=== PATIENT | male | born 1985 ===

== ENCOUNTER 2021-09-13 21:54 | Inpatient (IN) | payer OTHER ==
[2021-09-13] MEDS ORDERED: Lorazepam 2 MG/ML VIAL ONE ×2 (22:16→23:20)
[2021-09-13] MEDS ORDERED: Haloperidol Lactate 5 MG/ML VIAL ONE (22:29)
[2021-09-13] MEDS ORDERED: EPINEPHrine 1 MG/10 ML Abboject SYRINGE ONE (22:58)
[2021-09-13 23:12] LABS: #Eosinphils 0.1 thou/uL (0.0-0.7); #Lymphocytes 1.3 thou/uL (1.20-3.40); #Monocytes 0.7 thou/uL (0.11-0.59); #Neutrophils 2.8 thou/uL (1.40-6.50); %Basophils 0.6 % (0.0-1.0); %Eosinophils 1.5 % (0.0-10.0); %Lymphocytes 26.3 % (21.0-51.0); %Monocytes 13.9 % (0.0-10.0); %Neutrophils 57.7 % (42.0-75.0); Hemoglobin 10.4 g/dL (14.0-18.0); Mean Corpuscular HGB CONC 34.2 g/dL (32.0-36.0); Mean Corpuscular Volume 96.5 fL (78.0-98.0); Mean Platelet Volume 8.9 fL (7.4-10.4); Platelet Count 113 thou/uL (130-400); Red Blood Cell (RBC) Count 3.14 mill/uL (4.70-6.10); White Blood Cell (WBC) Count 4.9 thou/uL (4.8-10.8)
[2021-09-13 23:28] LABS: Large Platelets SLIGHT; MDiff Complete? YES; Platelet Morphology Comment Appears Decreased; RBC Morphology Normal
[2021-09-13 23:34] LABS: ALT (SGPT) 21 U/L (8-55); AST (SGOT) 30 U/L (5-34); Albumin 3.1 g/dL (3.5-5.0); Alkaline Phosphatase 67 U/L (40-110); Anion Gap 14 mmol/L (10-20); BUN (Urea Nitrogen) 51 mg/dL (8.9-20.6); Bilirubin, Total 1.5 mg/dL (0.2-1.2); Calc. Creatinine Clearance 0 mL/min (70-130); Calcium 6.8 mg/dL (7.8-10.44); Carbon Dioxide 16 mmol/L (22-29); Chloride 114 mmol/L (98-107); Globulin 2.6 g/dL (2.4-3.5); Glucose 61 mg/dL (70-105); Potassium 3.8 mmol/L (3.5-5.1); Protein, Total 5.7 g/dL (6.0-8.3); Sodium 140 mmol/L (136-145)
[2021-09-13 23:34] LABS: Acetaminophen Less than 6.0 mcg/mL (10.0-30.0); Alcohol Less than 10 mg/dL (Less than 10); Salicylate Less than 8.0 mg/dL (15.0-30.0)
[2021-09-14] MEDS ORDERED: Dextrose 50% Abboject 50 ML SYRINGE ONE (00:15)
[2021-09-14] MEDS ORDERED: Lorazepam 2 MG/ML VIAL ONE (00:29)
[2021-09-14] MEDS ORDERED: Rocuronium Bromide 10 MG/ML (10ML VIAL) ONE ×2 (00:45→00:50)
[2021-09-14] MEDS ORDERED: Ketamine 50 MG/ML (10ML VIAL) ONE (00:45)
[2021-09-14] MEDS ORDERED: Fentanyl CADD 100 ML IV SCH (01:30)
[2021-09-14 02:02] LABS: Bilirubin Negative (Negative); Blood, Urine 1+ (Negative); Clarity Clear (Clear); Glucose, Urine (Dipstick) 70 mg/dL (Negative); Ketone, Urine 20 mg/dL (Negative); Leukocyte Negative Leu/uL (Negative); Nitrite Negative (Negative); Protein, Urine (Dipstick) 10 mg/dL (Neg-Trace); RBC/HPF 0-3 HPF (0-3); Specific Gravity, Urine 1.012 (1.002-1.036); Squamous Epithelial None Seen HPF (0-3); Urobilinogen Normal mg/dL (Less than 2); WBC/HPF 0-3 HPF (0-3); pH, Urine 5.5 (5.0-9.0)
[2021-09-14 02:12] LABS: Amphetamine Not Detected (NotDetected); Barbiturates Screen Not Detected (NotDetected); Benzodiazepine Screen Detected (NotDetected); Cocaine Metabolite Screen Not Detected (NotDetected); Methadone Not Detected (NotDetected); Methamphetamine Detected (NotDetected); Opiate Screen Not Detected (NotDetected); Oxycodone Screen Not Detected (NotDetected); Phencyclidine (PCP) Not Detected (NotDetected); THC/Cannabinoid Screen Not Detected (NotDetected); Tricyclic Screen Not Detected (NotDetected)
[2021-09-14 02:19] LABS: Bacteria/HPF 1+ HPF (None Seen)
[2021-09-14] MEDS ORDERED: Propofol 1,000 MG/100 ML VIAL IV ONE (03:21)
[2021-09-14] MEDS: Propofol 1,000 MG/100 ML VIAL IV PRN ×3 (03:22→13:33)
[2021-09-14] MEDS ORDERED: Ondansetron ODT 4 MG TAB PO PRN (03:24)
[2021-09-14] MEDS ORDERED: Electrolyte Replacement Protocol 1 EACH IVPB SCH (03:29)
[2021-09-14] MEDS ORDERED: Ventilator Sedation Protocol 1 EACH FS SCH (03:30)
[2021-09-14] MEDS ORDERED: Ondansetron ODT 4 MG TAB SL PRN (03:30)
[2021-09-14] MEDS ORDERED: Sodium Chloride 0.9% 1,000 ML IV SCH (03:30)
[2021-09-14] MEDS ORDERED: Ondansetron PF 4 MG/2 ML Vial IVP PRN (03:30)
[2021-09-14] MEDS ORDERED: Acetaminophen 325 MG TAB PO PRN (03:30)
[2021-09-14] MEDS ORDERED: Morphine 2 MG/ML VIAL SLOW IVP PRN (03:45)
[2021-09-14] MEDS ORDERED: Fentanyl BOLUS 250 ML IVPB PRN (03:45)
[2021-09-14] MEDS ORDERED: Lorazepam 2 MG/ML VIAL SLOW IVP PRN (03:45)
[2021-09-14] MEDS ORDERED: Electrolyte Replacement Protocol FS PRN (03:45)
[2021-09-14] MEDS ORDERED: Propofol BOLUS 1,000 MG/100 ML VIAL IV PRN (03:45)
[2021-09-14] MEDS ORDERED: Morphine 4 MG/ML VIAL SLOW IVP PRN (03:45)
[2021-09-14] MEDS ORDERED: DISCONTINUE PREVIOUS NARCOTIC PAIN MEDICATIONS AND BENZODIAZEPINES FS SCH (03:45)
[2021-09-14 04:21] LABS: SARS-CoV-2 NAA Rapid Test Not Detected (NotDetected)
[2021-09-14] MEDS: Sodium Chloride 0.9% 1,000 ML IV SCH ×3 (04:30→23:13)
[2021-09-14 05:00] LABS: Actual Bicarbonate (HCO3a) 18.2 mEq/L (22-28); Base Excess (BEa) -8.7 mEq/L (-2.0 to +3.0); CO2 Tension 42.5 mmHg (35.0-45.0); Calcium, Ionized (arterial) 1.17 mmol/L (1.12-1.30); Carboxyhemoglobin (COHb) 0.6 gm% (0.0-3.0); Hemoglobin (Hb) 14.3 g/dL (14.0-18.0); O2 Tension (PaO2), arterial 125.7 mmHg (80.0-100.0); Potassium - ABG Lab 4.19 mmol/L (3.70-5.30)
[2021-09-14 05:04] LABS: pH, Arterial 7.25 (7.35-7.45)
[2021-09-14 05:05] LABS: ALV-art Gradient 177.675 mmHg (0-20); Puncture Site RBA
[2021-09-14 06:40] LABS: Glucose 84 mg/dL (70-105)
[2021-09-14 08:10] LABS: #Monocytes 1.2 thou/uL (0.11-0.59); #Neutrophils 8.2 thou/uL (1.40-6.50); %Basophils 0.1 % (0.0-1.0); %Eosinophils 0.3 % (0.0-10.0); %Lymphocytes 9.7 % (21.0-51.0); %Monocytes 11.8 % (0.0-10.0); %Neutrophils 78.1 % (42.0-75.0); Hemoglobin 11.7 g/dL (14.0-18.0); Mean Corpuscular Hemoglobin 33.2 pg (27.0-31.0); Mean Corpuscular Volume 97.6 fL (78.0-98.0); Mean Platelet Volume 9.4 fL (7.4-10.4); Platelet Count 125 thou/uL (130-400); RBC Distribution Width 13.2 % (11.5-14.5); Red Blood Cell (RBC) Count 3.52 mill/uL (4.70-6.10); White Blood Cell (WBC) Count 10.5 thou/uL (4.8-10.8)
[2021-09-14 08:33] LABS: ALT (SGPT) 18 U/L (8-55); AST (SGOT) 24 U/L (5-34); Albumin 2.9 g/dL (3.5-5.0); Alkaline Phosphatase 61 U/L (40-110); Anion Gap 11 mmol/L (10-20); BUN (Urea Nitrogen) 29 mg/dL (8.9-20.6); Bilirubin, Total 1.4 mg/dL (0.2-1.2); Calc. Creatinine Clearance 172 mL/min (70-130); Calcium 6.6 mg/dL (7.8-10.44); Carbon Dioxide 15 mmol/L (22-29); Chloride 114 mmol/L (98-107); Glucose 72 mg/dL (70-105); Potassium 3.3 mmol/L (3.5-5.1); Protein, Total 5.9 g/dL (6.0-8.3); Sodium 137 mmol/L (136-145)
[2021-09-14] MEDS ORDERED: Potassium Chloride 40 MEQ in Sodium Chloride 0.9% 250 ML 250 ML IVPB SCH (09:00)
[2021-09-14] MEDS: Enoxaparin Sodium 40 MG/0.4 ML SYRINGE SC SCH (09:23)
[2021-09-14 20:49] LABS: Glucose 135 mg/dL (70-105)
[2021-09-14] MEDS ORDERED: Lactated Ringer's 500 ML IV SCH (21:00)
[2021-09-14] MEDS ORDERED: Norepinephrine 8 MG in Dextrose 5% in Water 242 ML IVPB PRN (21:00)
[2021-09-15] MEDS: Propofol 1,000 MG/100 ML VIAL IV PRN ×2 (01:52→06:15)
[2021-09-15 05:24] LABS: Band 2 % (5-11); Eosinophils 1 % (0-10); Hemoglobin 12.6 g/dL (14.0-18.0); Lymphocytes 28 % (21-51); MDiff Complete? YES; Mean Corpuscular HGB CONC 33.7 g/dL (32.0-36.0); Mean Corpuscular Hemoglobin 32.3 pg (27.0-31.0); Mean Corpuscular Volume 95.9 fL (78.0-98.0); Mean Platelet Volume 9.3 fL (7.4-10.4); Monocytes 8 % (0-10); Neutrophil 61 % (42-75); Platelet Count 174 thou/uL (130-400); Platelet Morphology Comment Appears Adequate; RBC Distribution Width 13.4 % (11.5-14.5); RBC Morphology Normal; White Blood Cell (WBC) Count 7.7 thou/uL (4.8-10.8)
[2021-09-15 08:39] LABS: ALT (SGPT) 18 U/L (8-55); AST (SGOT) 20 U/L (5-34); Albumin 3.2 g/dL (3.5-5.0); Alkaline Phosphatase 66 U/L (40-110); Anion Gap 10 mmol/L (10-20); BUN (Urea Nitrogen) 17 mg/dL (8.9-20.6); Bilirubin, Total 1.9 mg/dL (0.2-1.2); Calc. Creatinine Clearance 234 mL/min (70-130); Carbon Dioxide 24 mmol/L (22-29); Chloride 109 mmol/L (98-107); Glucose 142 mg/dL (70-105); Protein, Total 6.2 g/dL (6.0-8.3); Sodium 139 mmol/L (136-145)
[2021-09-15] MEDS: Enoxaparin Sodium 40 MG/0.4 ML SYRINGE SC SCH (09:47)
[2021-09-15] MEDS: Sodium Chloride 0.9% 1,000 ML IV SCH ×2 (09:47→17:25)
[2021-09-15 12:22] LABS: Actual Bicarbonate (HCO3a) 22.5 mEq/L (22-28); Base Excess (BEa) -0.9 mEq/L (-2.0 to +3.0); CO2 Tension 33.7 mmHg (35.0-45.0); Calcium, Ionized (arterial) 1.21 mmol/L (1.12-1.30); Carboxyhemoglobin (COHb) 0.7 gm% (0.0-3.0); Hemoglobin (Hb) 13.2 g/dL (14.0-18.0); O2 Tension (PaO2), arterial 72.9 mmHg (80.0-100.0); Potassium - ABG Lab 4.17 mmol/L (3.70-5.30); pH, Arterial 7.44 (7.35-7.45)
[2021-09-15 12:23] LABS: Puncture Site RRA
[2021-09-16] MEDS: Dexmedetomidine 1,000 MCG in Sodium Chloride 0.9% 250 ML 240 ML IVPB SCH ×2 (02:06→05:57)
[2021-09-16 04:58] LABS: Anion Gap 13 mmol/L (10-20); BUN (Urea Nitrogen) 13 mg/dL (8.9-20.6); Calc. Creatinine Clearance 260 mL/min (70-130); Calcium 9.8 mg/dL (7.8-10.44); Carbon Dioxide 24 mmol/L (22-29); Chloride 104 mmol/L (98-107); Glucose 118 mg/dL (70-105); Potassium 4.5 mmol/L (3.5-5.1); Sodium 136 mmol/L (136-145)
[2021-09-16 05:01] LABS: Band 3 % (5-11); Hemoglobin 13.7 g/dL (14.0-18.0); Lymphocytes 12 % (21-51); MDiff Complete? YES; Mean Corpuscular HGB CONC 34.3 g/dL (32.0-36.0); Mean Corpuscular Hemoglobin 32.8 pg (27.0-31.0); Mean Corpuscular Volume 95.4 fL (78.0-98.0); Monocytes 12 % (0-10); Neutrophil 73 % (42-75); Platelet Count 154 thou/uL (130-400); Platelet Morphology Comment Appears Adequate; RBC Distribution Width 12.8 % (11.5-14.5); RBC Morphology Normal; Red Blood Cell (RBC) Count 4.19 mill/uL (4.70-6.10); White Blood Cell (WBC) Count 10.1 thou/uL (4.8-10.8)
[2021-09-16] MEDS: Sodium Chloride 0.9% 1,000 ML IV SCH (05:57)
[2021-09-16] MEDS: Enoxaparin Sodium 40 MG/0.4 ML SYRINGE SC SCH (09:53)
[2021-09-16] MEDS ORDERED: Lisinopril 5 MG TAB PO SCH (10:15)
[2021-09-16] MEDS ORDERED: Amlodipine 10 MG TAB PO SCH (10:30)
[2021-09-16] MEDS: clonazePAM 1 MG TAB PO PRN (19:27)
[2021-09-16] MEDS: Lisinopril 5 MG TAB PO SCH (19:27)
[2021-09-17] MEDS: Acetaminophen 325 MG TAB PO PRN ×2 (00:15→19:28)
[2021-09-17] MEDS: clonazePAM 1 MG TAB PO PRN ×2 (07:55→20:14)
[2021-09-17] MEDS: Lisinopril 5 MG TAB PO SCH ×2 (07:56→19:28)
[2021-09-17] MEDS: Enoxaparin Sodium 40 MG/0.4 ML SYRINGE SC SCH (07:56)
[2021-09-17] MEDS: Amlodipine 10 MG TAB PO SCH (07:56)
[2021-09-17 10:02] VITALS: BMI 32.3
[2021-09-17 11:28] LABS: Mean Corpuscular HGB CONC 32.4 g/dL (32.0-36.0); Mean Corpuscular Hemoglobin 30.3 pg (27.0-31.0); Mean Corpuscular Volume 93.7 fL (78.0-98.0); Platelet Count 228 thou/uL (130-400); Red Blood Cell (RBC) Count 4.62 mill/uL (4.70-6.10); White Blood Cell (WBC) Count 7.9 thou/uL (4.8-10.8)
[2021-09-17 11:39] LABS: Anion Gap 12 mmol/L (10-20); BUN (Urea Nitrogen) 8 mg/dL (8.9-20.6); Calc. Creatinine Clearance 258 mL/min (70-130); Calcium 9.9 mg/dL (7.8-10.44); Carbon Dioxide 25 mmol/L (22-29); Chloride 102 mmol/L (98-107); Glucose 143 mg/dL (70-105); Potassium 3.6 mmol/L (3.5-5.1); Sodium 135 mmol/L (136-145)
[2021-09-17 12:08] LABS: Band 5 % (5-11); Eosinophils 2 % (0-10); Lymphocytes 13 % (21-51); MDiff Complete? YES; Monocytes 11 % (0-10); Neutrophil 69 % (42-75); Platelet Morphology Comment Appears Adequate; RBC Morphology Normal
[2021-09-18] MEDS: Acetaminophen 325 MG TAB PO PRN ×2 (01:00→06:21)
[2021-09-18] MEDS ORDERED: hydrOXYzine 25 MG TAB PO PRN (01:45)
[2021-09-18 07:41] LABS: Hemoglobin 14.8 g/dL (14.0-18.0); Mean Corpuscular Hemoglobin 31.5 pg (27.0-31.0); Mean Corpuscular Volume 95.4 fL (78.0-98.0); Mean Platelet Volume 8.9 fL (7.4-10.4); Platelet Count 276 thou/uL (130-400); RBC Distribution Width 13.1 % (11.5-14.5); Red Blood Cell (RBC) Count 4.72 mill/uL (4.70-6.10); White Blood Cell (WBC) Count 9.3 thou/uL (4.8-10.8)
[2021-09-18 08:21] LABS: Band 9 % (5-11); Eosinophils 1 % (0-10); Lymphocytes 13 % (21-51); MDiff Complete? YES; Monocytes 13 % (0-10); Neutrophil 64 % (42-75); Platelet Morphology Comment Appears Adequate; RBC Morphology Normal
[2021-09-18] MEDS: Lisinopril 5 MG TAB PO SCH (08:23)
[2021-09-18] MEDS: clonazePAM 1 MG TAB PO PRN (08:23)
[2021-09-18] MEDS: Amlodipine 10 MG TAB PO SCH (08:23)
[2021-09-18] MEDS: Enoxaparin Sodium 40 MG/0.4 ML SYRINGE SC SCH (08:24)
[2021-09-18 13:10] VITALS: BP 159/93; TEMP 98.7
== END 2021-09-18 18:07 | disposition home or self-care (01) | DRG 917 ==
LOC: ERS 21:54 → CCU 09-14 02:12 → T4-A 09-16 11:39
PROVIDERS: ADMIT Student in an Organized Health Care Education/Training Program; ATTEND Internal Medicine
PROC: 5A1945Z Respiratory Ventilation, 24-96 Consecutive Hours (ICD-10-PCS; principal; 2021-09-14)
PROC: 0BH18EZ Insertion of Endotracheal Airway into Trachea, Via Natural or Artificial Opening Endoscopic (ICD-10-PCS; 2021-09-14)
DX: T43.621A Poisoning by amphetamines, accidental (unintentional), initial encounter (principal); J96.01 Acute respiratory failure with hypoxia; G92.9 Unspecified toxic encephalopathy; N17.9 Acute kidney failure, unspecified; E87.2 Acidosis; E87.4 Mixed disorder of acid-base balance; F19.10 Other psychoactive substance abuse, uncomplicated; D64.9 Anemia, unspecified; Z20.822 Contact with and (suspected) exposure to COVID-19; D69.6 Thrombocytopenia, unspecified; E16.2 Hypoglycemia, unspecified; E66.9 Obesity, unspecified; Z68.32 Body mass index [BMI] 32.0-32.9, adult; Y92.9 Unspecified place or not applicable
CPT/HCPCS: 31500; 36415; 36416; 36600; 70450; 71045; 80048; 80053; 80306; 80307; 81003; 81015; 82248; 82550; 82693; 82805; 82947; 83930; 84443; 85007; 85025; 85027; 85060; 93005; 93306; 94002; 94003; 94640; 96365; 96374; 96375; 96376; J0171; J1630; J1650; J2060; J2704; J3010; J3480; J3490; J7050; J7070; J7120; J7620; U0002